=== PATIENT | male | born 1950 | race Caucasian/White ===

== ENCOUNTER 2024-08-21 11:24 | Emergency (ER) | payer OTHER, MEDICARE, SELFPAY ==
[2024-08-21 11:30] VITALS: BP 123/78; PULSE 81; RESP 18; TEMP 37.1; O2SAT 92
--- OUTSIDE RECORDS SUMMARY | 2024-08-21 11:57 | XMS_ITS | Continuity of Care Document ---
Author Organization [facility] Address [address] [place] [address] [place] [address] Phone Care Team Providers Care Roto Mixer Operator Name Role Phone [facility] Unavailable Unavail able Unavailable Unavailable Unavailable Advance Directives Directive Yes / No Effective Date File Name No Information Encounters Encounter Description Practice Location Reason(s) For Visit Diagnoses Date Provider Providers Copied on Encounter [facility], [address], [place], [place], [id number], [place] tel:[phone] [facility] No Information [facility] [address] [facility], [facility] [address], [place], [place], [id number] , [place]. tel:[phone] Referring Provider: Chayito Shea, [facility] [address], [place], [address]. tel:[phone] Family History Family Member Type Diagnosis Age At Onset No Information Payers Payer name Insurance type Covered alliance party ID Authoriza tion(s) No Information Social History Type Description Quantity Date Captured Comments Sex Male Smoking Status No Information Chief Complaint And Reason For Visit No Information Reason For Referral Reason For Referral No Information History Of Present Illness Encounter Date Complaint History Of Prese nt Illness No Information Functional Status Date Functional Assessmen t No Information Instructions Date Instruction Additional Infor mation No Information Assessments Type Assessment Date No Information Patient Care Teams Name Effective Dates (start - stop) Status Members No Information
--- OUTSIDE RECORDS SUMMARY | 2024-08-21 12:37 | XMS_ITS | Continuity of Care Document ---
Author Organization [facility] Address [address] [place] [address] [place] [address] Phone Care Team Providers Care Leak Inspector Name Role Phone [facility] Unavailable Unavail able Unavailable Unavailable Unavailable Advance Directives Directive Yes / No Effective Date File Name No Information Encounters Encounter Description Practice Location Reason(s) For Visit Diagnoses Date Provider Providers Copied on Encounter [facility], [address], [place], [place], [id number], [place] tel:[phone] [facility] No Information [facility] [address] [facility], [facility] [address], [place], [place], [id number] , [place]. tel:[phone] Referring Provider: Chayito Shea, [facility] [address], [place], [address]. tel:[phone] Family History Family Member Type Diagnosis Age At Onset No Information Payers Payer name Insurance type Covered republican ID Authoriza tion(s) No Information Social History [...]
== END 2024-08-21 12:38 | disposition left against medical advice (07) ==
LOC: ANHED 12:33
DX: S60.423A Blister (nonthermal) of left middle finger, initial encounter (principal); X58.XXXA Exposure to other specified factors, initial encounter
CPT/HCPCS: 99199

== ENCOUNTER 2024-08-21 14:50 | Emergency (ER) | payer SELFPAY ==
--- NOTE | 2024-08-21 14:54 | ED.GENADULT ---
HPI - General Adult General Chief complaint: Skin/Abscess/Foreign Body Stated complaint: Left Middle Finger Spider Bite Source: patient Mode of arrival: ambulatory Limitations: no limitations History of Present Illness HPI narrative: Pt is a 74 y/o male presenting with c/o infection to the L. 3rd finger. States he woke up with a painful, swollen L. 3rd finger 3-4 days ago. Suspects spider bite but denies seeing a spider on his skin prior to onset of sx. States he went to an [facility] in [facility] where they shot numbing in my finger cause it was really hurting and gave me amoxicillin with something in it. Pt states he has been taking the abx with improvement in sx. Went to [place] [facility] today however they were taking everyone else before me. He states he came here for you to cut it open. NO additional complaints. Related Data Home Medications ?Medication ?Instructions ?Recorded ?Confirmed ?Last Taken ?Type albuterol 90 mcg/actuation aerosol mcg inhalation 08/21/24 Unknown History inhaler prednisone .ROUTE 08/21/24 Unknown History Allergies Allergy/AdvReac Type Severity Reaction Status Date / Time No Known Allergies Allergy Verified 08/21/24 15:04 Review of Systems Review of Systems: CONSTITUTIONAL: Denies body aches, fever, chills, or sweats. EYES: Denies visual changes, redness, or discharge. ENT: Denies rhinorrhea, congestion, sore throat, or otalgia. CARDIOVASCULAR: Denies chest pain, palpitations, or edema. RESPIRATORY: Denies cough or dyspnea. GASTROINTESTINAL: Denies abdominal pain, nausea, vomiting, or diarrhea. GENITOURINARY: Denies dysuria or hematuria. SKIN: Denies rash, itching, or wounds. MUSCULOSKELETAL: Denies back pain, joint pain, or myalgia. NEUROLOGIC: Denies headache, numbness, tingling, or weakness. PSYCH: Denies depression or anxiety. All systems reviewed & are unremarkable except as noted in HPI and below Exam Narrative: GENERAL: Well-appearing, well-nourished, and in no acute distress. HEAD: Normocephalic, atraumatic. EYES: EOMI. No redness or drainage. Conjunctivae normal. ENT: Mucous membranes pink and moist. NECK: Normal AROM. Supple. CHEST: No respiratory distress. HEART: Normal rate Normal peripheral pulses. MUSCULOSKELETAL: No bony tenderness. EXTREMITIES: Normal range of motion. SKIN: Warm, dry, no rash. Capillary refill normal. Normal skin turgor. There is edema, erythema noted to the entire L. 3rd finger. There is no lymphatic streaking There is fluctuance noted to the lateral aspect of the L. 3rd finger without spontaneous drainage. The entire 3rd distal phalanx on the L. hand is TTP however, the pad of the L. 3rd finger is exquisitely TTP. NEURO: No focal deficits. Alert and oriented x3. Gait steady. PSYCH: Normal affect. No signs of depression or anxiety. Course Course Emergency Course: Concern for deep space infection of the L. 3rd finger given the presenting sx/fingerpad exquisitely TTP. I recommended he be transferred to ER for further diagnostic work up. He refused transfer saying I might go at like 1 o clock in the morning when they're not busy. AMA paperwork signed Level of Care: Express Care Visit Vital Signs Vital signs: Vital Signs Temperature 97.5 F L 08/21/24 14:58 Pulse Rate 104 H 08/21/24 14:58 Respiratory Rate 08/21/24 14:58 Blood Pressure 151/98 H 08/21/24 14:58 Pulse Oximetry 93 08/21/24 14:58 Oxygen Delivery Room Air 08/21/24 14:58 Temperature 97.5 F L 08/21/24 14:58 Pulse Rate 104 H 08/21/24 14:58 Respiratory Rate 08/21/24 14:58 Blood Pressure 151/98 H 08/21/24 14:58 Pulse Oximetry 93 08/21/24 14:58 Oxygen Delivery Room Air 08/21/24 14:58 Medical Decision Making Vital Signs Vital Signs: Vital Signs Temperature 97.5 F L 08/21/24 14:58 Pulse Rate 104 H 08/21/24 14:58 Respiratory Rate 08/21/24 14:58 Blood Pressure 151/98 H 08/21/24 14:58 Pulse Oximetry 93 08/21/24 14:58 Oxygen Delivery Room Air 08/21/24 14:58 Temperature 97.5 F L 08/21/24 14:58 Pulse Rate 104 H 08/21/24 14:58 Respiratory Rate 08/21/24 14:58 Blood Pressure 151/98 H 08/21/24 14:58 Pulse Oximetry 93 08/21/24 14:58 Oxygen Delivery Room Air 08/21/24 14:58 Discharge Plan Discharge Clinical Impression: Felon of finger of left hand Patient Disposition: Left Against Medical Advice Condition: Stable Additional Instructions: Go straight to ER should your symptoms become worse or should any new symptoms develop Patient Language: Slovenian Prescriptions: No Action albuterol 90 mcg/actuation aerosol inhalation prednisone [Prednisone Intensol] .ROUTE Follow-up/Referrals: UNKNOWN,DOCTOR [Primary Care Provider] - 08/21/24 Time of Disposition: 15:05
[2024-08-21 14:58] VITALS: BP 151/98; PULSE 104; RESP 20; TEMP 36.4; O2SAT 93
== END 2024-08-21 15:10 | disposition left against medical advice (07) ==
PROVIDERS: Emergency Provider Registered Nurse
DX: L03.012 Cellulitis of left finger (principal)
CPT/HCPCS: 99211; G0463

== ENCOUNTER 2024-08-22 02:07 | Emergency (ER) | payer MEDICARE, SELFPAY ==
--- OUTSIDE RECORDS SUMMARY | 2024-08-22 02:09 | XMS_ITS | Clinical Summary ---
Author Organization [facility] Address [address] [place] [address] Care Team Providers Care Service Desk Director Name Role Phone Unavailable Primary Care Provider Unavailabl e Immunizations Name Administration Dates Next Due Influenza (IM) 12/12/2014 Pneumococcal Polysaccharide 23-Valent 12/13/2014 Social History Tobacco Use Types Packs/Day Years Used Date Smoking Tobacco: Never Assessed Sex and Gender Information Value Date Recorded Sex Assigned at Not on file Legal Sex Male 8:19 PM MDT Gender Identity Not on file Sexual Orientation Not on file Plan of Treatment Health Maintenance Due Date Last Done Comments CT Colonography 1950 Colonoscopy 1950 Colorectal Cancer Screening 1950 FIT-DNA 1950 FIT 1950 FOBT 1950 Hepatitis C Screening 1950 Sigmoidoscopy 1950 Td/Tdap 06/23/1969 Shingles Vaccine (1 of 2) 06/23/2001 Pneumococcal Vaccine: 65+ Years (2 of 2 - PCV) 016 12/13/2014 COVID-19 Vaccine ( season) 2023 Influenza Vaccine (#1) 2024 12/12/2014 Insurance [facility]
--- OUTSIDE RECORDS SUMMARY | 2024-08-22 02:09 | XMS_ITS | Referral Summary ---
Author Organization [facility] Address [address] [place] [address] Care Team Providers Care Newspaper Press Operator Apprentice Name Role Phone Unavailable Primary Care Provider [...] Orientation Not on file Plan of Treatment Not on file Insurance [facility]
--- OUTSIDE RECORDS SUMMARY | 2024-08-22 02:10 | XMS_ITS ---
Author Organization [facility] Address [address] [place] [address] Care Team Providers Care Service Center Specialist Name Role Phone NA GRANADO Primary Care Provider REASON FOR VISIT refill- prednisone 5mg Medications Medication SIG (Take, Route, Fr equency, Duration) Notes Start Date End Date Status PredniSONE 5 MG 1 tablet with food or milk Orally Once a day for 20 days As needed Active Encounters Encounter Location Date Provider Diagnosis [id number] [facility] [address] [place], [place] [id number] 08/19/2024 NA GRANADO Panlobular emphysema J43.1 Assessments Encounter Date Diagnosis (ICD Code) Assessment Notes Treatment Notes Treatment Clinical Notes Section Notes 08/19/2024 Panlobular emphysema (ICD-10 - J43.1) Plan Of Treatment Medication Medication Name Sig Start Date Stop Date Notes PredniSONE 5 MG 1 tablet with food o r milk Orally Once a day for 20 days Next Appt Details Provider Name:Wiliam VINSON 09/03/2024 02:00:00 PM, [address], [address], [place], [place], [id number], Progress Notes * Kevin BRANTLEY LDOB:[birth year] (74 yo M)Acc No.[id number]:08/19/2024 Patient: Kevin MOHR :1950 A ge:74 Y S ex:Male Address:[address] [place] [id number] * Refills Refill PredniSONE Tablet, 5 MG, Orally, 20 Tablet, 1 tablet with food or milk, Once a day, 20 days, Refills=1 * true * Date: Generated for Maxwell jalloh/Fanny/Jennyitting on: 0 08/22/2024 01:10 AM [place]
--- OUTSIDE RECORDS SUMMARY | 2024-08-22 02:10 | XMS_ITS | Encounter Summary ---
Author Organization [facility] Address [address] [place] [address] Care Team Providers Care Cancer Program Coordinator Name Role Phone Unavailable Primary Care Provider Unavailabl e Prior Encounters Date Type Department Care Team Description 09/21/2020 Travel 09/21/2020 2:00 PM MDT Consult [facility] [address], [address] [address] Marcio De Souza DMD MSD 09/01/2020 Travel 09/01/2020 4:00 PM MDT Office Visit [facility] [id number] [facility] [place] [id number] Pamela Blanchard DDS 02/25/2019 Converted 13x Documents [facility] [address] , [address] [address] <No scans attached> 02/25/2019 Converted CPS Chart Documents [facility] [address], [address] [address] <No scans attached> Last Filed Vital Signs Vital Sign Reading Time Taken Comments Blood Pressure 129/67 09/21/2020 1:57 PM MDT Pulse 65 09/21/2020 1:57 PM MDT Temperature - - Respiratory Rate - - Oxygen Saturation - - Inhaled Oxygen Concentration - - Weight - - Height - - Body Mass Index - - Plan of Treatment Not on file Procedures Procedure Name Priority Date/Time Associated Diagnosis Comments PERIO CONSULT Routine 09/21/2020 2:00 PM MDT ORAL HYGIENE INSTRUCTIONS Routine 2020 4:00 PM MDT PERIO MAINTENANCE Routine 09/01/2020 4:0 0 PM MDT 30 CORE BUILDUP, INCLUDING ANY PINS WHEN REQUIRED Routine 06/02/2020 1:00 AM MDT 14 CORE BUILDUP, INCLUDING ANY PINS WHEN REQUIRED Routine 06/02/2020 1:00 AM MDT 30 ENDODONTIC THERAPY, MOLAR TOOTH (EXCLUDING FINAL MORMON) Routine 06/02/2020 1:00 AM MDT 14 ENDODONTIC THERAPY, MOLAR TOOTH (EXCLUDING FINAL MORMON) Routine 06/02/2020 1:00 AM MDT 19 IMPLANT CROWN UNIT Routine 06/02/2020 1:00 AM MDT 19 IMPLANT Routine 06/02/2020 1:00 AM MDT 21 CROWN PFM POST Routine 06/02/2020 1:0 0 AM MDT 20 CROWN PFM POST Routine 06/02/2020 1:0 0 AM MDT 18 CROWN PFM POST Routine 06/02/2020 1:0 0 AM MDT 15 CROWN PFM POST Routine 06/02/2020 1:0 0 AM MDT 14 CROWN PFM POST Routine 06/02/2020 1:0 0 AM MDT 13 CROWN PFM POST Routine 06/02/2020 1:0 0 AM MDT 12 CROWN PFM POST Routine 06/02/2020 1:0 0 AM MDT 2 CROWN PFM POST Routine 06/02/2020 1:00 AM MDT 30 CROWN PFM POST Routine 06/02/2020 1:0 0 AM MDT COMPREHENSIVE ORAL EVALUATION - NEW OR ESTABLISHED PATIENT Routine 06/02/2020 1:00 AM MDT UR PERIODONTAL SCALING AND ROOT PLANING - FOUR OR MORE TEETH PER QUADRANT Routine 06/02/2020 1:00 AM MDT UL PERIODONTAL SCALING AND ROOT PLANING - FOUR OR MORE TEETH PER QUADRANT Routine 06/02/2020 1:00 AM MDT LR PERIODONTAL SCALING AND ROOT PLANING - FOUR OR MORE TEETH PER QUADRANT Routine 06/02/2020 1:00 AM MDT LL PERIODONTAL SCALING AND ROOT PLANING - FOUR OR MORE TEETH PER QUADRANT Routine 06/02/2020 1:00 AM MDT ORAL HYGIENE INSTRUCTIONS Routine 2020 1:00 AM MDT LR ESTIVEN DECON/QD Routine 06/02/2020 1:00 AM MDT LL ESTIVEN DECON/QD Routine 06/02/2020 1:00 AM MDT UL ESTIVEN DECON/QD Routine 06/02/2020 1:00 AM MDT UR ESTIVEN DECON/QD Routine 06/02/2020 1:00 AM MDT UR ANTIBACT IRR/QUAD Routine 06/02/2020 1:00 AM MDT UL ANTIBACT IRR/QUAD Routine 06/02/2020 1:00 AM MDT LR ANTIBACT IRR/QUAD Routine 06/02/2020 1:00 AM MDT LL ANTIBACT IRR/QUAD Routine 06/02/2020 1:00 AM MDT TOPICAL APPLICATION OF FLUORIDE VARNISH Routine 06/02/2020 1:00 AM MDT PANORAMIC RADIOGRAPHIC IMAGE Routine 06/02/2020 1:00 AM MDT INTRAORAL - COMPREHENSIVE SERIES OF RADIOGRAPHIC IMAGES Routine 06/02/2020 1:00 AM MDT DENTAL PLAN ENROLL 1 Routine 06/02/2020 1:00 AM MDT INTRAORAL PHOTO Routine 06/02/2020 1:00 AM MDT INTRAORAL PHOTO Routine 06/02/2020 1:00 AM MDT INTRAORAL PHOTO Routine 06/02/2020 1:00 AM MDT INTRAORAL PHOTO Routine 06/02/2020 1:00 AM MDT Visit Diagnoses Not on file
--- OUTSIDE RECORDS SUMMARY | 2024-08-22 02:10 | XMS_ITS ---
Author Organization [facility] Address [address] [place] [address] Care Team Providers Care Dental Hygienist Name Role Phone NA GRANADO Primary Care Provider REASON FOR VISIT Refill Out of State Medications Medication SIG (Take, Route, Frequency, Duration) Notes Start Date End Date Status Albuterol Sulfate HFA 108 (90 Base) MCG/ACT INHALE 2 PUFFS every 4 hrs as needed for 30 days diagnosis should be J43.1 Panlobular emphysema Active Encounters Encounter Location Date Provider Diagnosis [id number] [facility] [address] [place], [place] [id number] 02/13/2024 NA GRANADO Panlobular emphysema J43.1 Assessments Encounter Date Diagnosis (ICD Code) Assessment Notes Treatment Notes Treatment Clinical Notes Section Notes 02/13/2024 Panlobular emphysema (ICD-10 - J43.1) no ER visits or exacerbations; Plan Of Treatment Medication Medication Name Sig Start Date Stop Date Notes Albuterol Sulfate HFA 108 (90 Base) MCG/ACT INHALE 2 PUFFS every 4 hrs as needed for 30 days diagnosis should be J43.1 Panlobular emphysema Next Appt Details Provider Name:Wiliam VINSON 09/03/2024 02:00:00 PM, [address], [address], [place], [place], [id number], Progress Notes * Kevin BRANTLEY LDOB:[birth year] (73 yo M)Acc No.[id number]:02/13/2024 Patient: Kevin MOHR :1950 A ge:73 Y S ex:Male Address:[address] [place] [phone] * Refills Refill Albuterol Sulfate HFA Aerosol Solution, 108 (90 Base) MCG/ACT, 1, INHALE 2 PUFFS, every 4 hrs as needed, 30 days, Refills=3 * true * Date: Generated for Maxwell jalloh/Fanny/Malsmitting on: 0 08/22/2024 01:10 AM MDT
--- OUTSIDE RECORDS SUMMARY | 2024-08-22 02:10 | XMS_ITS | Clinical Summary ---
Author Organization [facility] Address [address] [place], [place] [address] Care Team Providers Care Author Name Role Phone Unavailable Primary Care Provider Unavailabl e Immunizations Immunization Administration Dates Next Due Influenza, seasonal, injectable 12/12/2014 Pneumococcal Polysaccharide PPV23 12/13/2014 Social History Tobacco Use Types Packs/Day Years Used Date Smoking Tobacco: Never Assessed Sex and Gender Information Value Date Recorded Sex Assigned at Not on file Legal Sex Male 3:30 PM EST Gender Identity Not on file Sexual Orientation Not on file Plan of Treatment Not on file
--- OUTSIDE RECORDS SUMMARY | 2024-08-22 02:10 | XMS_ITS | Patient Health Record ---
Author Organization [facility] Billing Info Address [address] [place] [address] Care Team Providers Care Airframe And Power Plant Mechanic Name Role Phone NA GRANADO Primary Care Provider Allergies Allergen (clinical drug ingredient) Drug/Non Drug Allergy documented on EMR Reaction Allergy Type Onset Date Status HAY Unknown Drug Allergy Active POLLEN EXTRACTS Unknown Drug Allergy A ctive Reason For Referral No Information Medications Medication SIG (Take, Route, Frequency, Duration) Notes Start Date End Date Status Albuterol Sulfate HFA 108 (90 Base) MCG/ACT INHALE 2 PUFFS BY MOUTH EVERY 4 HOURS NEEDED for 30 days Active Budesonide-Formoterol Fumarate 160-4.5 MCG/ACT INHALE 2 PUFFS BY MOUTH TWICE DAILY Inhalation BID Activ e Oxygen L per NC 4 L Inhalation at night Active PredniSONE 5 MG 1 tablet with food or milk Orally Once a day for 20 days As needed Active Immunizations Vaccine Route Administration Date Status Comme nts PNEUMOCOCCAL - 23 POLY (PNEUMOVAX 23) IM Intramuscular 09/16/2019 Administered PNEUMOCOCCAL 13 CONJ ([id number]) Unknown 12/19/2017 Pending zCOVID-19 (Pfizer-BioNTech Purple Cap Comirnaty) 12+yrs, NO PRES Unknown 08/01/2020 Administered zCOVID-19 (Pfizer-BioNTech Purple Cap Comirnaty) 12+yrs, NO PRES Unknown 08/23/2020 Administered Social History Tobacco Use: Social History Observation Description Date Details (start date - stop date) Current Smoker NA - NA Tobacco Status: Question Answer Notes Patient is a current every day smoker (ANSW ERED BY PATIENT) Problems Problem Type SNOMED Code ICD Code Onset Dates Problem Status W/U Status Risk Notes Problem 7669100 Panlobular emphysema (J43.1) Active confirmed no ER visits or exacerbation s; Problem 210485938 Pulmonary nodules (R91.8) Active confirmed small nodule on previous CT chest; has yet to complete follow up; stressed with patient today importance of this test Problem 524357568 Hypoxia (R09.02) Active confirmed oxygen sat at room air and with exercise remains above 88%; recommend overnight oxygen testing to determine if still needs home oxygen Problem 93272946020623758 Cigarette nicotine dependence with other nicotine-moriah therese disorder (F17.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) Active confirmed readiness to change low cites increased stress not interested in NRT or wellbutrin info on CO QUIT line given 6 min spent counseling Encounters Encounter Location Date Provider Diagnosis [id number] [facility] [address] [place] [id number] 11/08/2023 NA JAIMEY Panlobular emphysema J43.1 [id number] [facility] [address] [place] [id number] 12/29/2023 NA LOY [id number] [facility] [address] [facility] [id number] 02/13/2024 NA LOY Panlobular emphysema J43.1 [id number] [facility] [address] [facility], [place] [id number] 08/12/2024 NA LOY Panlobular emphysema J43.1 [id number] [facility] [address] [place] [id number] 08/19/2024 NA LOY Panlobular emphysema J43.1 Assessments Encounter Date Diagnosis (ICD Code) Assessment Notes Treatment Notes Treatment Clinical Notes Section Notes 11/08/2023 Panlobular emphysema (ICD-10 - J43.1) 02/13/2024 Panlobular emphysema (ICD-10 - J43.1) no ER visits or exacerbations; 08/12/2024 Panlobular emphysema (ICD-10 - J43.1) 08/19/2024 Panlobular emphysema (ICD-10 - J43.1) Plan Of Treatment Pending Test Test Name Order Date BREATHING TREATMENTS, NEBULIZER ([id number]) 12/19/2017 CBC With Differential/Platelet ([id number] ) 12/19/2017 Vitamin D, 25-Hydroxy (L-800441) 018 TSH + Free T4 (L-[id number]) 12/19/2017 AMBULATORY PULSE OXIMETRY (IH) 8 Comp. Metabolic Panel (14) reflex A1C (L -[id number]) 12/19/2017 CT- CHEST LUNG SCREENING LOW DOSE WITHOUT CONTRAST ([id number]) ([id number]) 06/07/2023 Future Test Test Name Order Date CT- CHEST LUNG SCREENING LOW DOSE WITHOUT CONTRAST ([id number]) ([id number]) 10/05/2020 Next Appt Details Provider Name:NA GRANADO, 0 09/03/2024 02:00:00 PM, [address], [address], [place], [place], [id number], Insurance Providers Payer Name Payer Address Payer Phone Subscriber Number Group Number Insured Name Patient Relationship to Insured Coverage Start Date Coverage End Date MEDICARE [place] PART B [address] [place] [id number] Kevin Brantley Self - patient is the insured 4 3 Medical (General) History Medical History History ICD Code Hx of asthma exacerbation Asthma Tobacco abuse Emphysema Surgical History Surgery Date(Month/Year) Hernia Appendectomy 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
--- OUTSIDE RECORDS SUMMARY | 2024-08-22 02:10 | XMS_ITS | Data Portability ---
Author Organization [place] - [email or web address], [facility] Address [address] [address] Assessment No assessment recorded. Plan of Treatment Reminders Order Date Submit Date Provider Last Modified By Organization Details Last Modified Time Details Appointments None recorded. Lab None recorded. Referral None recorded. Procedures None recorded. Surgeries None recorded. Imaging None recorded. Medication Orders ProAir HFA 90 mcg/actuat ion aerosol inhaler 2017 018 [facility] #[id number], [address], [place], [place], [id number], 8 14:58:59 prednisone 20 mg tablet 2017 018 [facility] #[id number], [address] , [place], [place], [id number], 8 14:58:59 Qvar 80 mcg/actuat ion Metered Aerosol oral inhaler 2017 018 INTER[facility] #[id number], [address] , [place], [place], [id number], 8 14:58:59 Patient TargetsNo targets recorded. Patient Instructions Encounter Date Encounter Id Patient Instructions Last Modified By Organization Details Last Modified Time 03/26/2017 [id number] controlling your asthma: care instructions [email or web address] Not available 03/26/2017 14:58:49 learning about asthma Not available 03/26/2017 14:58:49 Reason for Referral None Reported. Problems Name Problem SNOMED Code Status Onset Date Resolution Date Notes Provider Name and Address Organization Details Recorded Time Acute bronchos pasm 64909309847 100 Completed 201602/13/2017 Addition al Notes: ( 7) (Resolve d) Not Available [facility]ly [facility], [facility] 8 06:34:31 Acute sinusiti s 76888766 Active 2016 Addition al Notes: ( 7) Not Available [facility], [facility]–1983 8 06:34:31 Acute exacerba tion of asthma Active 2016 Addition al Notes: (acute) exacerba tion ( 7) Not Available [facility], [facility]–1983 8 06:34:31 Acute bronchit is 92512623 Completed 201602/13/2017 Addition al Notes: ( 7) (Resolve d) Not Available [facility], [facility] 8 06:34:31 Acute bronchit is 77021758 Active 2016 Addition al Notes: ( 7) Not Available [facility], [facility] 8 06:34:31 Placento graphy abnormal 670934511 Completed 201602/13/2017 Addition al Notes: (Resolve d) Not Available [facility], [facility] 8 06:34:31 Problem Notes None recorded. Procedures Surgical History Date Name Laterality Status Provider Name and Address Organization Details Recorded Time Orthopedic Surgery completed [facility] 03/26/2017 14:43:58 Appendectomy completed [facility] 03/26/2017 14:44:01 Imaging Results None recorded. Procedure Notes None recorded. Medical Equipment None Reported. Allergies Allergen ID Allergen Name Allergen Category Reaction Reaction Severity Criticality Documentation Date Start Date Code Code System Note Provider Name and Address Organization Details Recorded Time 798061 No Allergy Informati on Available Not available Not available Not available Not available 05/15/2017 73350 UNK Not Available [facility], [facility] 8 05:54:52 Medications Name Sig Start Date Stop Date Status Note LastModified by Organization Details LastModified Time Qvar 80 mcg/actua tion Metered Aerosol oral inhaler Inhale 2 puffs twice a day by inhalati on route. 2017 active Not Available Not Available Not Avai lable prednison e 20 mg tablet Take 1 tablet twice a day by oral route for 5 days. 2017 active Not Available Not Available Not Avai lable Zithromax Z-Barrera 250 mg tablet 2 tablet Oral 1 time per day 12/04 completed Descript ion: Zithroma x Z-Barrera 250 mg 2 tablet (Oral) 1 time per day 1 days then 1 tablet 1 time per day Oral 4 days, Total Qty: 6 tablet, Allow Substitu tions Prescrib ed by: Ata Gentile MD Start Date: 12/03/16 Duratio n: 1 days Dis pense Code Descript ion: Allow Substitu tions Not Available Not Available Not Available Tessalon Perles 100 mg capsule Take 1-2 capsules oral 3 times per day 2016 active Descript ion: Tessalon Perles 100 MG 1-2 capsules (oral) 3 times per day (as needed for cough) , Do Not Exceed 6 perles in 24 hours, Total Qty: 30 capsules , Allow Substitu tions Prescrib ed by: BARRY Koch Start Date: 07/26/16 PRN: as needed for cough Di spense Code Descript ion: Allow Substitu tions Not Available Not Available Not Available prednison e 50 mg tablet Take 1 tablet oral 1 time per day 12/08 completed Descript ion: predniso ne 50 MG 1 tablet (oral) 1 time per day 5 days, Total Qty: 5 tablet, Allow Substitu tions Prescrib ed by: BARRY Koch Start Date: 07/26/16 Duratio n: 5 days Dis pense Code Descript ion: Allow Substitu tions Not Available Not Available Not Available ProAir HFA 90 mcg/actua tion aerosol inhaler Inhale 2 puff(s) every 4 hours by inhalati on route. active Not Available Not Available No t Available Vitals Date Recorded Body height Body mass index (BMI) Body weight Oxygen saturation Oxygen saturation in Arterial blood by Pulse oximetry Respiratory rate Body temperature Heart rate Systolic And Diastolic Provider Name and Address Organization Details Last Updated DateTime 8 185.42 cm 23.9 kg/m2 82827.5 8 g 91 % 91 % 12 /min 96.9 [degF] 67 /min 132/82 mm[Hg] Letty Steinberg [place] - [facility] 8 14:39:03 Social History Question Answer Notes LastModified by Organizat ion Details LastModified Time Tobacco Smoking Status Current Every Day Smoker Letty Steinberg null, [place] - [facility] 03/26/2017 14:42:57 How Intense Is Your Typical Exercise? Light (like Stretching Or Slow Walking) [email or web address] Information not available 03/26/2017 Do You Have Children? How Many? 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 No [email or web address] Information not available 03/26/2017 Marital Status Single [email or web address] Information not available 03/26/2017 What Was The Date Of Your Most Recent Tobacco Screening? 03/26/2017 Information not available 08/29/2018 How Much Tobacco Do You Smoke? 1 PPD [email or web address] Information not available 03/26/2017 Sex: Unknown Functional Status Question Answer Note LastModified by Organization D etails LastModified Time What is your level of alcohol consumption? None [email or web address] Information not available 03/26/2017 Mental Status None recorded. Family History Nothing Reported. Medical History Condition Response Other N Blood & Circulation (such as high choles terol, anemia) N Musculoskeletal (arthritis, fibromyalgia, Lupus, osteoporosis, gout, obesity, back pain N Cancers (such as bone, brain, breast, pr ostate, cervical, leukemia, skin) N Psychologic Conditions (such as depression, anxiety, substance abuse, PTSD, eating disorders) N Infectious Diseases (such as HIV, Lyme dz, meningitis, MRSA, STD s, TB, chicken pox) N Eye/Ear/Nose/Throat (such as glaucoma, ear infection, sinusitis, tonsilitis, TMJ) N Respiratory Conditions (such as asthma, COPD, pneumonia, bronchitis, sleep apnea) Y Brain & Nervous System (such as stroke, headaches, dementia, MS, seizures, concussion) N Endocrine/Gland Disorders (such as diabe conner, thyroid problems, obesity) N Genitourinary conditions (such as freque nt UTI, kidney stones, incontinence) N Heart and Blood Vessels (suc h as heart attack, arrhythmias, AAA, CHF, high blood pressure) N Skin and Nails (such as acne, eczema, ps oriasis) N Digestive Disorders (such as cirrhosis, reflux, pancreatitis, ulcers, constipation) N Reproductive Conditions (enl arged prostate, cervical dysplasia, herpes, ED, pre-eclampsia) N Allergy & Immunology (such a s food/medication allergies, anaphylaxis, hayfever) N Past Encounters Encounter ID Performer Location Encounter Start Date Encounter Closed Date Diagnosis/Indication Diagnosis SNOMED-CT Code Diagnosis ICD10 Code Diagnosis Note [id number] Christopher Bautista MD [facility] [place] [id number] [place] [address] 03/26/2017 14:25:06 03/26/2017 15:07:50 Asthma 989378180 J45.909 Health Concerns Section Related Observation LastModified by Organization Detai ls LastModified Time None Recorded Concern Status LastModified by Organization Details LastModified Time None Recorded Advance Directives Directive None Recorded Payers Insurance Date Sequence Insurance Name Policy Number Policy Reid Covered Member ID Reid Member ID Guarantor Name 03/26/2017 1 [place] [id number] Kevin Brantley [id number] Kevin Brantley Notes Date Note Type Note Provider Name and Address Organization Details Recorded Time 03/26/2017 text/html UC_CoughReport ed bypatient.Qual ity:wheezing Severity:moder ate Duration:inter mittent Timing:worse Context:smoker Associated Symptoms:no fever; no chills; Hx of asthma, out of meds Need refill of Rx. but unsure of name. The last time he took it was last year. Servando polo [place] - [facility] 03/26/2017 18:25:15
--- OUTSIDE RECORDS SUMMARY | 2024-08-22 02:10 | XMS_ITS ---
Author Organization [facility] Billing Info Address [address] [place] [address] Care Team Providers Care Angledozer Operator Name Role Phone NA GRANADO Primary Care Provider REASON FOR VISIT Rx refill Medications Medication SIG (Take, Route, Frequency, Duration) Notes Start Date End Date Status Albuterol Sulfate HFA 108 (90 Base) MCG/ACT INHALE 2 PUFFS BY MOUTH EVERY 4 HOURS NEEDED for 30 days Active Encounters Encounter Location Date Provider Diagnosis [id number] [facility] [address] [place], [place] [id number] 08/12/2024 NA GRANADO Panlobular emphysema J43.1 Assessments Encounter Date Diagnosis (ICD Code) Assessment Notes Treatment Notes Treatment Clinical Notes Section Notes 08/12/2024 Panlobular emphysema (ICD-10 - J43.1) Plan Of Treatment Medication Medication Name Sig Start Date Stop Date Notes Albuterol Sulfate HFA 108 (9 0 Base) MCG/ACT INHALE 2 PUFFS BY MOUTH EVERY 4 HOURS NEEDED for 30 days Next Appt Details Provider Name:Wiliam VINSON 09/03/2024 02:00:00 PM, [address], [address], [place], [place], [phone], Progress Notes * Kevin BRANTLEY LDOB:[birth year] (74 yo M)Acc No.[id number]:08/12/2024 Patient: Kevin MOHR :1950 A ge:74 Y S ex:Male Address:[address] [place] [id number] * Refills Refill Albuterol Sulfate HFA Aerosol Solution, 108 (90 Base) MCG/ACT, 1, INHALE 2 PUFFS BY MOUTH EVERY 4 HOURS NEEDED, 30 days, Refills=11 * true * Date: Generated for Maxwell jalloh/Fanny/Jennyitting on: 0 08/22/2024 01:10 AM [place]
--- OUTSIDE RECORDS SUMMARY | 2024-08-22 02:10 | XMS_ITS | Clinical Summary ---
Author Organization [facility] Address [address] [place] [address] Care Team Providers Care Teaching Manager Name Role Phone Unavailable Primary Care Provider Unavailabl e Medications predniSONE (DELTASONE) 5 mg tablet Take 5 mg by mouth 1 (one) time each day. Active Active Problems No known active problems Social History Tobacco Use Types Packs/Day Years Used Date Smoking Tobacco: Every Day Cigarettes Smokeless Tobacco: Current Sex and Gender Information Value Date Recorded Sex Assigned at Not on file Legal Sex Male 8:37 PM PDT Gender Identity Not on file Sexual Orientation Not on file Last Filed Vital Signs Vital Sign Reading Time Taken Comments Blood Pressure 129/67 09/21/2020 1:57 PM MDT Pulse 65 09/21/2020 1:57 PM MDT Temperature - - Respiratory Rate - - Oxygen Saturation - - Inhaled Oxygen Concentration - - Weight - - Height - - Body Mass Index - - Plan of Treatment Health Maintenance Due Date Last Done Comments Dental Oral Exam 12/03/2020 06/02/2020 Dental X-Ray: Bitewings 12/03/2020 06/02/2020 Periodontal Maintenance 12/03/2020 09/01/2020 Scaling and Root Planing 06/16/2022 021, 06/02/2020, 06/02/2020, Additional history exists Dental X-Ray: Full Mouth 06/30/2023 06/28/2020, 05/08 Dental X-Ray: Panoramic 06/30/2023 06/28/2020, 06/02 Procedures Procedure Name Priority Date/Time Associated Diagnosis Comments PERIO MAINTENANCE Routine 09/01/2020 4:0 0 PM MDT PANORAMIC RADIOGRAPHIC IMAGE Routine 06/02/2020 1:00 AM MDT LL PERIODONTAL SCALING AND ROOT PLANING - FOUR OR MORE TEETH PER QUADRANT Routine 06/02/2020 1:00 AM MDT INTRAORAL - COMPREHENSIVE SERIES OF RADIOGRAPHIC IMAGES Routine 06/02/2020 1:00 AM MDT COMPREHENSIVE ORAL EVALUATION - NEW OR ESTABLISHED PATIENT Routine 06/02/2020 1:00 AM MDT from Last 3 Months or Most Recently Relevant to Health Maintenance
--- OUTSIDE RECORDS SUMMARY | 2024-08-22 02:11 | XMS_ITS | Continuity of Care Document ---
Author Organization [facility] Address [address] [place] [address] [place] [address] Phone Care Team Providers Care Telecommunications Specialist Name Role Phone [facility] Unavailable Unavail able Unavailable Unavailable Unavailable Advance Directives Directive Yes / No Effective Date File Name No Information Encounters Encounter Description Practice Location Reason(s) For Visit Diagnoses Date Provider Providers Copied on Encounter [facility], [address], [place], [place], [id number], [place] tel:[phone] [facility] No Information [facility] [address] [facility], [facility] [address], [place], [place], [id number] , [place]. tel:[phone] Referring Provider: Chayito Shea, [facility] [address], [place], [address]. tel:[phone] Family History Family Member Type Diagnosis Age [...]
[2024-08-22 02:14] VITALS: BP 136/89; PULSE 76; RESP 16; TEMP 36.4; O2SAT 92
--- NOTE | 2024-08-22 02:38 | PC.NURSE ---
pt refuse to put the gown on
--- NOTE | 2024-08-22 02:52 | ED_ITS ---
HPI - Skin/Abscess/Foreign Bdy General Chief complaint: Skin/Abscess/Foreign Body Stated complaint: spider bite Time Seen by Provider: 08/22/24 02:46 History of Present Illness HPI narrative: 74-year-old male presenting to the emergency department with left middle finger infection after a spider bite since Monday. He states he went to urgent care to trying get an incision and drainage done and they referred him to the emergency department. He was started on Augmentin several days ago by his primary care provider and took couple doses of it but sometimes to not be helping. Does have an obvious infection to his left middle finger on the pad laterally distal 3rd finger, no fever or subjective chills, no streaking signs of infection, no restricted range of motion. No trauma or injury and woke up feeling a bite by likely a spider when this started. No signs of necrosis or overlying erythema but there is some fluctuant mass on the distal pulp of the lateral finger 3rd digit. Related Data Home Medications ?Medication ?Instructions ?Recorded ?Confirmed ?Last Taken ?Type albuterol 90 mcg/actuation aerosol mcg inhalation 08/21/24 Unknown History inhaler prednisone .ROUTE 08/21/24 Unknown History Allergies Allergy/AdvReac Type Severity Reaction Status Date / Time No Known Allergies Allergy Verified 08/21/24 15:04 Review of Systems Review of Systems: As reviewed above in HPI Exam Narrative: GENERAL: [Well-appearing, well-nourished, and in no acute distress.] HEAD: [Normocephalic, atraumatic.] EYES: [PERRLA and EOMI.] ENT: Nares clear, no rhinorrhea or epistaxis. Mucous membranes moist. NECK: Supple. CHEST: [Clear to auscultation. No respiratory distress.] HEART: [Regular rate and rhythm]. No murmur heard. [Normal peripheral pulses.] ABDOMEN: [Soft, nondistended], [nontender], [No rigidity or guarding] EXTREMITIES: Distal finger pad laterally on the ulnar aspect of the 3rd finger has an area of edema with fluctuant mass on palpation, no spontaneous drainage or streaking redness, capillary refill is normal, tender to palpation but no restricted range of motion. Able to oppose each digit, able to flex and extend at the MCP PIP and D IP joint without difficulty. SKIN: Warm, dry, no rash. NEURO: [No focal deficits]. Alert and oriented [x3.] PSYCH: [Normal mood and affect.] Course Vital Signs Vital signs: Vital Signs Temperature 36.4 C 08/22/24 02:14 Pulse Rate 76 08/22/24 02:14 Respiratory Rate 16 08/22/24 02:14 Blood Pressure 136/89 08/22/24 02:14 Pulse Oximetry 92 08/22/24 02:14 Oxygen Delivery Room Air 08/22/24 02:14 Temperature 36.4 C 08/22/24 02:14 Pulse Rate 85 08/22/24 03:33 Respiratory Rate 16 08/22/24 03:33 Blood Pressure 131/93 H 08/22/24 03:33 Pulse Oximetry 100 08/22/24 03:33 Oxygen Delivery Room Air 08/22/24 02:14 Procedures Abscess I/D hand: Date of Incision: 08/22/24 Time of Incision: 04:31 Side (if applicable): left Sedation/analgesia: none Local Anesthetic: lidocaine 1% (Digital block) Amount of anesthesia used (mL): 5 Technique: incised with #11 blade Amount of fluid expressed (mL): 5 Irrigation: Yes Packing used?: none I&D Results: Pus Abcess I&D Additional Comments: Bacitracin applied over top and dressed Nerve Block Nerve Block 1: Nerve block date: 08/22/24 Nerve block time: 04:20 Time out performed: Yes Local Anesthetic: lidocaine 1% Amount of anesthesia used (mL): 5 Side: left Nerve Blocks: digital Procedure Successful: Yes Patient Tolerated Procedure: well and no complications Complications: none MDM - Skin/Abscess/Foreign Bdy MDM Narrative Medical decision making narrative: 74-year-old male presenting to the emergency department with left middle finger infection after a spider bite since Monday. He states he went to urgent care to trying get an incision and drainage done and they referred him to the emergency department. He was started on Augmentin several days ago by his primary care provider and took couple doses of it but sometimes to not be helping. Does have an obvious infection to his left middle finger on the pad laterally distal 3rd finger, no fever or subjective chills, no streaking signs of infection, no restricted range of motion. No trauma or injury and woke up feeling a bite by likely a spider when this started. No signs of necrosis or overlying erythema but there is some fluctuant mass on the distal pulp of the lateral finger 3rd digit. Distal finger pad laterally on the ulnar aspect of the 3rd finger has an area of edema with fluctuant mass on palpation, no spontaneous drainage or streaking redness, capillary refill is normal, tender to palpation but no restricted range of motion. Able to oppose each digit, able to flex and extend at the MCP PIP and D IP joint without difficulty. Patient is hemodynamically stable and afebrile with his exam findings consistent with a felon. Discussed options going forward including incision and drainage and patient was amenable. Digital block was conducted and incision with scalpel 11 blade conducted. Procedure note above. Patient tolerated procedure well and will be discharged home with Bactrim. Encouraged to follow-up with his primary care provider in several days and given return precautions and discharge instructions. Medical Records Attestation: I reviewed the patient's medical records. Discharge Plan Discharge Clinical Impression: Felon of finger of left hand, Abscess of skin or subcutaneous tissue Patient Disposition: Home Condition: Stable Instructions: Antibiotic Form, Abscess (ED) Additional Instructions: We performed an incision and drainage of your felon/abscess with significant pus removal. Take the new antibiotic that we have prescribed for you and you can take anti-inflammatory such as Tylenol or ibuprofen for pain and swelling. Keep the area clean and covered with a bandage, expect small amounts of pus and blood still drain until fully healed. Follow-up with regular primary care provider next several days if possible. Return with any emergent concerns. Patient Language: Bulgarian Prescriptions: New sulfamethoxazole-trimethoprim [Bactrim DS] 800-160 mg tablet 1 tablet PO Q12H Qty: 14 0RF No Action albuterol 90 mcg/actuation aerosol inhalation prednisone [Prednisone Intensol] .ROUTE Follow-up/Referrals: UNKNOWN,DOCTOR [Primary Care Provider] - Time of Disposition: 04:33
--- OUTSIDE RECORDS SUMMARY | 2024-08-22 02:54 | XMS_ITS | Continuity of Care Document ---
Author Organization [facility] Address [address] [place] [address] [place] [address] Phone Care Team Providers Care Sales Agent Marine Insurance Name Role Phone [facility] Unavailable Unavail able Unavailable Unavailable Unavailable Advance Directives Directive Yes / No Effective Date File Name No Information Encounters Encounter Description Practice Location Reason(s) For Visit Diagnoses Date Provider Providers Copied on Encounter [facility], [address], [place], [place], [id number], [place] tel:[phone] [facility] No Information [facility] [address] [facility] [address], [place], [place], [address] , [place]. tel:[phone] Referring Provider: Chayito Shea, [facility] [address], [place], [address]. tel:[phone] Family History Family Member Type Diagnosis Age [...]
--- OUTSIDE RECORDS SUMMARY | 2024-08-22 02:55 | XMS_ITS | Encounter Summary ---
Author Organization [facility] Health Address [address] [place] [address] Care Team Providers Care Professional Wrestler Name Role Phone Unavailable Primary Care Provider Unavailabl e Prior Encounters Date Type Department Care Team Description 09/21/2020 Travel 09/21/2020 2:00 PM MDT Consult [facility] [address], [address] [address] Marcio De Souza DMD MSD 09/01/2020 Travel 09/01/2020 4:00 PM MDT Office Visit [facility] [id number] [facility] [facility] [place] [id number] Pamela Blanchard DDS 02/25/2019 Converted 13x Documents [facility] [address] , [address] [address] <No scans attached> 02/25/2019 Converted CPS Chart Documents [facility] [address], [address] [address] <No scans attached> Last Filed Vital Signs [...] 30 ENDODONTIC THERAPY, MOLAR TOOTH (EXCLUDING FINAL QUAKER) Routine 06/02/2020 1:00 AM MDT 14 ENDODONTIC THERAPY, MOLAR TOOTH (EXCLUDING FINAL QUAKER) Routine 06/02/2020 1:00 AM MDT 19 IMPLANT [...]
--- OUTSIDE RECORDS SUMMARY | 2024-08-22 02:55 | XMS_ITS | Clinical Summary ---
Author Organization [facility] Address [address] [place], [place] [address] Care Team Providers Care Entry Level Software Engineer Name Role Phone Unavailable Primary Care Provider [...]
--- OUTSIDE RECORDS SUMMARY | 2024-08-22 02:55 | XMS_ITS | Clinical Summary ---
Author Organization [facility] Address [address] [place] [address] Care Team Providers Care Storage Receipt Poster Name Role Phone Unavailable Primary Care Provider [...]
--- OUTSIDE RECORDS SUMMARY | 2024-08-22 02:55 | XMS_ITS | Referral Summary ---
Author Organization [facility] Address [address] [place] [address] Care Team Providers Care Distributor Advertising Material Name Role Phone Unavailable Primary Care Provider [...] Plan of Treatment Not on file Insurance [facility]
--- OUTSIDE RECORDS SUMMARY | 2024-08-22 02:55 | XMS_ITS | Clinical Summary ---
Author Organization [facility] Address [address] [place] [address] Care Team Providers Care Finish Sander Name Role Phone Unavailable Primary Care Provider [...] 2023 Influenza Vaccine (#1) 2024 12/12/2014 Insurance [facility]
[2024-08-22] MEDS: SULFAMETHOXAZOLE/TRIMETHOPRIM 800/160 MG DS TABLET 1 TAB PO (03:23)
[2024-08-22 03:33] VITALS: BP 131/93; PULSE 85; RESP 16; O2SAT 100
== END 2024-08-22 04:46 | disposition home or self-care (01) ==
PROVIDERS: Emergency Provider Student in an Organized Health Care Education/Training Program
DX: L03.012 Cellulitis of left finger (principal); L02.512 Cutaneous abscess of left hand
CPT/HCPCS: 10060; 26011; 99283; A9270